=== PATIENT | female | born 1945 | race American Indian/Alaskan Native ===

== ENCOUNTER 2021-12-02 13:13 | Outpatient (CLI) | payer MEDICARE ==
--- NOTE | 2021-12-02 15:37 | XRay Report ---
CHEST 2 VIEWS INDICATION / CLINICAL INFORMATION: COUGH. COMPARISON: None available. FINDINGS: SUPPORT DEVICES: None. HEART / MEDIASTINUM: The cardiac silhouette appears enlarged, but this may be accentuated by AP techn ique. LUNGS / PLEURA: Central peribronchial thickening likely representing acute bronchitis without evidenc e for superimposed pneumonia or pleural effusion. No pneumothorax. ADDITIONAL FINDINGS: Moderate thoracic degenerative spondylosis and dextroscoliosis. IMPRESSION: 1. Central peribronchial thickening likely representing acute bronchitis without evidence for superim posed pneumonia or pleural effusion. Signer Name: Manny Carcamo MD Signed: 12/02/2021 3:33 PM Workstation Name: [id number]
== END 2021-12-02 13:14 | disposition home or self-care (01) ==
LOC: XRAY 13:13
PROVIDERS: ATTEND Internal Medicine
DX: R91.8 Other nonspecific abnormal finding of lung field (principal)
CPT/HCPCS: 71046